=== PATIENT | male | born 1985 | race Caucasian/White ===

== ENCOUNTER 2016-11-16 14:05 | Emergency (ER) | payer OTHER, SELFPAY ==
[~2016-11-16] VITALS: Ht 182.9 cm; Wt 104.3 kg
[2016-11-16] MEDS ORDERED: TRIL600T PO (14:25)
[2016-11-16] MEDS ORDERED: DIVA250T PO (14:25)
[2016-11-16 14:45] LABS: ANION GAP 15 MEQ/L (8-16); BLOOD UREA NITROGEN 17 MG/DL (7-18); CALCIUM LEVEL 8.7 MG/DL (8.5-10.1); CARBON DIOXIDE LEVEL 21 MEQ/L (21-32); CHLORIDE LEVEL 104 MEQ/L (98-107); CREATININE FOR GFR 1.15 MG/DL (0.70-1.30); GLOMERULAR FILTRATION RATE > 60.0 (>60); GLUCOSE, FASTING 64 MG/DL (70-105); POTASSIUM SERUM 4.1 MEQ/L (3.5-5.1); SODIUM LEVEL 140 MEQ/L (136-145)
--- NOTE | 2016-11-16 15:11 | REP ---
CT of the brain without IV contrast: Comparisons 07/21/2015. There is no subdural or epidural hematoma. There is no subarachnoid or intraparenchymal hemorrhage. There is no edema, mass effect or midline shift. Ventricles are normal size and midline. Cortical stripe is unremarkable. The visualized paranasal sinuses and mastoid air cells are clear. Impression: No subdural or epidural hematoma. No hemorrhage otherwise, acute infarct or mass. Negative CT scan of the brain. Signed by Adalberto Lerma MD 11/16/2016 03:02 P
[2016-11-16 15:23] LABS: METHADONE URINE NEGATIVE (NEGATIVE)
[2016-11-16] MEDS ORDERED: DIVALPROEX 500 MG TAB PO ONE (15:30)
[2016-11-16] MEDS ORDERED: OXcarbazepine 300 MG TAB PO ONE (15:30)
[2016-11-16 16:59] VITALS: BP 120/75
== END 2016-11-16 17:01 | disposition home or self-care (01) ==
LOC: M ED 15:06
DX: R56.9 Unspecified convulsions (principal); S00.212A Abrasion of left eyelid and periocular area, initial encounter; W19.XXXA Unspecified fall, initial encounter; Y92.89 Other specified places as the place of occurrence of the external cause; Y93.89 Activity, other specified; Y99.0 Civilian activity done for income or pay; Z79.899 Other long term (current) drug therapy

== ENCOUNTER 2019-12-26 20:09 | Emergency (ER) | payer SELFPAY ==
[~2019-12-26] VITALS: Ht 188 cm; Wt 102.3 kg
[~2019-12-26 20:09] MED LIST: DIVA250T67 PO; TRIL600T PO
[2019-12-26 20:10] VITALS: BP 130/89
[2019-12-26] MEDS ORDERED: TRIL600T PO ×2 (21:04→21:10)
[2019-12-26] MEDS ORDERED: DEPA1TAB3 PO ×2 (21:04→21:10)
== END 2019-12-26 21:24 | disposition home or self-care (01) ==
LOC: M ED 20:09
DX: Z76.0 Encounter for issue of repeat prescription (principal); G40.909 Epilepsy, unspecified, not intractable, without status epilepticus

== ENCOUNTER → 2020-01-06 | Outpatient (REF) | payer SELFPAY ==
[~2020-01-06] MED LIST changes: +DEPA1TAB3 PO
[2020-01-06 16:42] LABS: BASO % 0.6 % (0.0-1.0); EOS # 0.1 10^3/uL (0.0-0.5); EOS % 1.6 % (0.0-3.0); HEMATOCRIT 42.6 % (42.0-52.0); HEMOGLOBIN 14.3 g/dl (13.5-17.5); LYMPH # 1.7 10^3/uL (1.5-5.0); LYMPH % 33.2 % (24.0-44.0); MEAN CORPUSCULAR HEMOGLOBIN 32.8 pg (27.0-33.0); MEAN CORPUSCULAR HGB CONC 33.6 g/dl (32.0-36.5); MEAN CORPUSCULAR VOLUME 97.7 fl (80.0-96.0); MONO # 0.4 10^3/uL (0.0-0.8); MONO % 7.8 % (0.0-5.0); NEUTROPHILS # 2.9 10^3/uL (1.5-8.5); NEUTROPHILS % 56.6 % (36.0-66.0); PLATELET COUNT, AUTOMATED 115 10^3/uL (150-450); RED BLOOD COUNT 4.36 10^6/uL (4.30-6.10)
[2020-01-06 16:53] LABS: ALBUMIN 3.6 GM/DL (3.2-5.2); ALT/SGPT 29 U/L (12-78); BILIRUBIN,TOTAL 0.4 MG/DL (0.2-1.0); BLOOD UREA NITROGEN 8 MG/DL (7-18); CALCIUM LEVEL 8.8 MG/DL (8.5-10.1); CARBON DIOXIDE LEVEL 27 MEQ/L (21-32); CHLORIDE LEVEL 103 MEQ/L (98-107); CHOLESTEROL LEVEL 138 MG/DL (<200); CHOLESTEROL RISK RATIO 3.729 (<5); CREATININE FOR GFR 0.78 MG/DL (0.70-1.30); GLOMERULAR FILTRATION RATE > 60.0 (>60); GLUCOSE, FASTING 76 MG/DL (70-100); HDL CHOLESTEROL 37 MG/DL (>40); LDL CHOLESTEROL 83 MG/DL (<100); NON-HDL-C 101 MG/DL; POTASSIUM SERUM 3.8 MEQ/L (3.5-5.1); SODIUM LEVEL 135 MEQ/L (136-145); TOTAL 25(OH) VITAMIN D 23.9 NG/ML (30.0-100.0); TOTAL PROTEIN 6.5 GM/DL (6.4-8.2); TRIGLYCERIDES LEVEL 90 MG/DL (<150); VALPROIC ACID (DEPAKOTE) 85.4 UG/ML (50.0-100.0)
[2020-01-06 16:54] LABS: HEMOGLOBIN A1c 5.2 %
== END ==
LOC: M LAB REF 16:01
PROVIDERS: ATTEND Family Medicine
DX: R56.9 Unspecified convulsions (principal)

== ENCOUNTER → 2020-03-01 | Emergency (ER) | payer MEDICAID, SELFPAY ==
[~2020-03-01] MED LIST changes: +DIVALPROEX 250 MG TAB As Ordered ONE; +DIVALPROEX 250 MG TAB ONE; +OXcarbazepine 300 MG TAB As Ordered ONE; +OXcarbazepine 300 MG TAB ONE
--- NOTE | 2020-04-13 17:14 | ECGEPIP ---
NORMAL SINUS RHYTHM SEE SCANNED DOWNTIME REPORT [facility]TDD
[2020-04-16 11:40] LABS: BASO % 0.6 % (0.0-1.0); EOS # 0.2 10^3/uL (0.0-0.5); EOS % 3.6 % (0.0-3.0); HEMATOCRIT 46.9 % (42.0-52.0); HEMOGLOBIN 15.6 g/dl (13.5-17.5); LYMPH # 1.7 10^3/uL (1.5-5.0); LYMPH % 31.8 % (24.0-44.0); MEAN CORPUSCULAR HEMOGLOBIN 33.8 pg (27.0-33.0); MEAN CORPUSCULAR HGB CONC 33.3 g/dl (32.0-36.5); MEAN CORPUSCULAR VOLUME 101.5 fl (80.0-96.0); MONO # 0.5 10^3/uL (0.0-0.8); MONO % 9.7 % (0.0-5.0); NEUTROPHILS # 2.9 10^3/uL (1.5-8.5); NEUTROPHILS % 54.1 % (36.0-66.0); PLATELET COUNT, AUTOMATED 107 10^3/uL (150-450); RED BLOOD COUNT 4.62 10^6/uL (4.30-6.10); WHITE BLOOD COUNT 5.3 10^3/uL (4.0-10.0)
[2020-05-24 20:58] LABS: ALBUMIN 3.6 GM/DL (3.2-5.2); ALT/SGPT 25 U/L (12-78); BILIRUBIN,DIRECT 0.2 MG/DL (0.0-0.2); BILIRUBIN,TOTAL 0.4 MG/DL (0.2-1.0); BLOOD UREA NITROGEN 8 MG/DL (7-18); CARBON DIOXIDE LEVEL 23 MEQ/L (21-32); CHLORIDE LEVEL 109 MEQ/L (98-107); CK-MB VALUE MASS 1.1 NG/ML (<3.6); CPK CREATINE PHOSPHOKINASE 74 U/L (39-308); CREATININE FOR GFR 1.06 MG/DL (0.70-1.30); FREE T4 0.87 NG/DL (0.76-1.46); GLOMERULAR FILTRATION RATE > 60.0 (>60); GLUCOSE, FASTING 90 MG/DL (70-100); MB/CK RELATIVE INDEX 1.49 (< OR =4); POTASSIUM SERUM 3.8 MEQ/L (3.5-5.1); SODIUM LEVEL 142 MEQ/L (136-145); TOTAL PROTEIN 6.3 GM/DL (6.4-8.2); TROPONIN I < 0.02 NG/ML (< 0.10); VALPROIC ACID (DEPAKOTE) 8.4 UG/ML (50.0-100.0)
== END | disposition left against medical advice (07) ==
LOC: M ED 14:34
DX: G40.909 Epilepsy, unspecified, not intractable, without status epilepticus (principal); Z53.21 Procedure and treatment not carried out due to patient leaving prior to being seen by health care provider; Z91.14 Patient's other noncompliance with medication regimen; F17.200 Nicotine dependence, unspecified, uncomplicated; Z79.899 Other long term (current) drug therapy

== ENCOUNTER 2020-05-15 08:35 | Emergency (ER) | payer MEDICAID, OTHER ==
[~2020-05-15] VITALS: Ht 188 cm; Wt 93.6 kg
[~2020-05-15 08:35] MED LIST changes: -DIVALPROEX 250 MG TAB As Ordered ONE; -DIVALPROEX 250 MG TAB ONE; -OXcarbazepine 300 MG TAB As Ordered ONE; -OXcarbazepine 300 MG TAB ONE
[2020-05-15 09:10] LABS: HEMATOCRIT 45.1 % (42.0-52.0); HEMOGLOBIN 14.7 g/dl (13.5-17.5); MEAN CORPUSCULAR HGB CONC 32.6 g/dl (32.0-36.5); MEAN CORPUSCULAR VOLUME 101.1 fl (80.0-96.0); PLATELET COUNT, AUTOMATED 122 10^3/uL (150-450); RED BLOOD COUNT 4.46 10^6/uL (4.30-6.10); WHITE BLOOD COUNT 5.7 10^3/uL (4.0-10.0)
[2020-05-15 09:31] LABS: BLOOD UREA NITROGEN 11 MG/DL (7-18); CALCIUM LEVEL 8.8 MG/DL (8.5-10.1); CARBON DIOXIDE LEVEL 22 MEQ/L (21-32); CHLORIDE LEVEL 108 MEQ/L (98-107); CREATININE FOR GFR 1.12 MG/DL (0.70-1.30); GLOMERULAR FILTRATION RATE > 60.0 (>60); GLUCOSE, FASTING 69 MG/DL (70-100); POTASSIUM SERUM 4.1 MEQ/L (3.5-5.1); SODIUM LEVEL 141 MEQ/L (136-145); VALPROIC ACID (DEPAKOTE) 88.4 UG/ML (50.0-100.0)
[2020-05-15 11:45] VITALS: BP 119/65
--- NOTE | 2020-05-15 12:09 | REP ---
INDICATION: fall, seizure, h/o seizure do. COMPARISON: NOVEMBER 16, 2016 TECHNIQUE: CT BRAIN PERFORMED IN THE AXIAL PLANE. CORONAL RECONSTRUCTION IMAGES ARE PERFORMED. FINDINGS: THE VENTRICLES ARE NORMAL IN SIZE AND POSITION. THERE IS NO MIDLINE SHIFT OR MASS EFFECT. HOLDER-WHITE DIFFERENTIATION IS WELL MAINTAINED. THERE IS NO ACUTE INTRACRANIAL HEMORRHAGE OR EXTRA-AXIAL FLUID COLLECTION. BONE WINDOW EXAMINATION IS UNREMARKABLE. VISUALIZED MASTOID AIR CELLS AND PARANASAL SINUSES ARE CLEAR. IMPRESSION: NEGATIVE NONCONTRAST CT BRAIN. A PRELIMINARY REPORT WAS PROVIDED BY [facility] AT THE TIME OF THE EXAM. <Electronically signed by Adalberto Holder > 05/15/20 [id number]
== END 2020-05-15 12:10 | disposition home or self-care (01) ==
LOC: M ED 08:35
DX: G40.89 Other seizures (principal); Z79.899 Other long term (current) drug therapy

== ENCOUNTER 2020-09-23 11:00 | Emergency (ER) | payer OTHER ==
[2020-09-23] MEDS ORDERED: VALPROATE SOD 500 MG/5 ML As Ordered ONE (11:44)
[2020-09-23] MEDS ORDERED: OXcarbazepine 300 MG TAB As Ordered ONE (11:47)
== END 2020-09-23 15:58 | disposition home or self-care (01) ==
LOC: M ED 11:00
DX: G40.909 Epilepsy, unspecified, not intractable, without status epilepticus (principal); Z91.14 Patient's other noncompliance with medication regimen; F17.200 Nicotine dependence, unspecified, uncomplicated; Z79.899 Other long term (current) drug therapy

== ENCOUNTER 2020-11-29 15:38 | Emergency (ER) | payer OTHER ==
[~2020-11-29] VITALS: Ht 185.4 cm; Wt 97.2 kg
[2020-11-29] MEDS ORDERED: ACET-907 PO (15:46)
[2020-11-29] MEDS ORDERED: LIDO2SOL9 PO (17:59)
[2020-11-29] MEDS ORDERED: KETO10TAB PO (17:59)
[2020-11-29] MEDS ORDERED: AUGM875T28 PO (17:59)
[2020-11-29 18:14] VITALS: BP 156/91
== END 2020-11-29 18:16 | disposition home or self-care (01) ==
LOC: M ED 15:38
DX: K04.7 Periapical abscess without sinus (principal); K02.9 Dental caries, unspecified; R56.9 Unspecified convulsions; J45.909 Unspecified asthma, uncomplicated; F17.200 Nicotine dependence, unspecified, uncomplicated; Z79.899 Other long term (current) drug therapy

== ENCOUNTER → 2025-03-14 | Outpatient (CLI) | payer SELFPAY ==
[~2025-03-14] MED LIST changes: +ACET-907 PO; +AUGM875T28 PO; +KETO10TAB PO; +LIDO100S29 PO
== END ==
LOC: M OUTALCOH 08:41
PROVIDERS: ATTEND Psychiatry & Neurology Psychiatry
DX: Z03.89 Encounter for observation for other suspected diseases and conditions ruled out (principal)

== ENCOUNTER 2025-03-21 09:58 | Outpatient (RCR) | payer SELFPAY | END 2025-03-27 | LOC: M OUTALCOH 09:58 | PROVIDERS: ATTEND Psychiatry & Neurology Psychiatry | DX: Z03.89 Encounter for observation for other suspected diseases and conditions ruled out (principal) ==

== ENCOUNTER 2025-05-01 09:39 | Emergency (ER) | payer OTHER, SELFPAY ==
[~2025-05-01] VITALS: Ht 188 cm; Wt 112.6 kg
[2025-05-01] MEDS ORDERED: DEPA250T PO (09:53)
[2025-05-01] MEDS ORDERED: DEPA500T2 PO (09:53)
[2025-05-01 10:50] LABS: KETONE, URINE AUTO RFX NEGATIVE (NEGATIVE); LEUKOCYTE ESTERASE UR AUTO RFX NEGATIVE (NEGATIVE); MUCUS, URINE RFX LARGE (NEGATIVE); NITRITE, URINE AUTO RFX NEGATIVE (NEGATIVE); RBC, URINE AUTO RFX TNTC /HPF (0-3); SQUAM EPITHELIAL CELL UR AURFX 0 /HPF (0-6); WBC, URINE AUTO RFX 5 /HPF (0-3)
[2025-05-01] MEDS: ONDANSETRON 4MG 2ML VIAL IV ONE (10:53)
[2025-05-01] MEDS: NS (Normal Saline) 0.9% 1,000 ML IV ONE (10:53)
[2025-05-01] MEDS: KETOROLAC 30 MG/ML 1 ML VIAL IV ONE (10:53)
[2025-05-01 10:56] LABS: BASO # 0.1 10^3/uL (0.0-0.2); BASO % 0.9 % (0.0-1.0); EOS # 0.1 10^3/uL (0.0-0.5); EOS % 1.6 % (0.0-3.0); LYMPH # 2.5 10^3/uL (1.5-5.0); LYMPH % 31.3 % (24.0-44.0); MONO # 0.7 10^3/uL (0.0-0.8); MONO % 8.4 % (2.0-8.0); NEUTROPHILS # 4.6 10^3/uL (1.5-8.5); NEUTROPHILS % 57.2 % (36.0-66.0); PLATELET COUNT, AUTOMATED 171 10^3/uL (150-450)
[2025-05-01 11:29] LABS: ALT/SGPT 72 U/L (7.0-40); AST/SGOT 34 U/L (<34)
[2025-05-01 11:36] VITALS: BP 114/64; TEMP 97.3; O2SAT 100
[2025-05-01] MEDS: TAMSULOSIN 0.4 MG CAP PO ONE (12:39)
[2025-05-01] MEDS ORDERED: ONDA-282 PO (13:38)
[2025-05-01] MEDS ORDERED: TAMS-18 PO (13:38)
[2025-05-01] MEDS ORDERED: KETO-204 PO (13:38)
== END 2025-05-01 13:48 | disposition home or self-care (01) ==
LOC: M ED 09:39
DX: N23 Unspecified renal colic (principal); R31.9 Hematuria, unspecified; N13.2 Hydronephrosis with renal and ureteral calculous obstruction; Z87.442 Personal history of urinary calculi; G40.909 Epilepsy, unspecified, not intractable, without status epilepticus; J45.909 Unspecified asthma, uncomplicated; F17.200 Nicotine dependence, unspecified, uncomplicated; Z79.899 Other long term (current) drug therapy
CPT/HCPCS: 74176; 80047; 80076; 81001; 83690; 85025; 96361; 96374; 96375; 99284; J1885; J2405